=== PATIENT | female | born 1945 | race Asian ===

== ENCOUNTER → 2022-05-19 12:29 | Outpatient (CLI) | payer MEDICARE, OTHER, SELFPAY ==
--- NOTE | 2022-05-19 12:35 | DI.MRI.S_ITS ---
PROCEDURE: MR KNEE LT WO CON INDICATIONS: Sprain of unspecified site of left knee TECHNIQUE: Noncontrast sagittal PD fast spin echo and T2 fast spin echo with fat saturation, sagittal 3-D FLASH with fat saturation; coronal T1 spin echo and PD fast spin echo with fat saturation, and axial PD fast spin echo with fat saturation through the knee. COMPARISON: None. FINDINGS: Image quality: Excellent. Menisci: There is complex tear involving the body and posterior horn of the medial meniscus. The lateral meniscus appears intact. The meniscal root ligaments appear intact. Cruciate ligaments: There is tear of the distal anterior cruciate ligament at its attachment to the anterior tibial eminence. The tear appears partial. There may be mild sprain of the proximal fibers of the posterior cruciate ligament (series 11, image 20). Medial structures: There is grade 2 sprain deep layer of the medial collateral ligament. There is partial tear/sprain of the semimembranosus tendon insertions. The meniscocapsular junction appears intact. Visualized portions of the pes anserinus tendons appear normal. No abnormal bursal fluid. Lateral structures: The lateral collateral ligament and the biceps femoris tendon appear intact. The popliteus tendon appears normal. Iliotibial band appears normal. Anterior structures: The quadriceps and patellar tendons appear intact. Patellar alignment is normal. There is partial tear/sprain of the medial patellar femoral ligament/patellar retinaculum (series 6, image 12). No femoral trochlear dysplasia or ventral trochlear prominence. No edema in the infrapatellar fat pad. There is nonspecific prepatellar soft tissue swelling. Bones and cartilage: There is nondisplaced fracture involving the medial tibial plateau extending to the tibial eminence. Nondisplaced fracture of the anterior aspect of the lateral tibial plateau is present. There is mild bone contusion involving the medial femoral condyle. There is tricompartmental cartilage thinning and fibrillation. Joint space: There is small knee joint effusion. Small De Jesus's cyst. Normal appearing synovial plicae are incidentally noted. IMPRESSION: 1. Anterior cruciate ligament tear. The tear involves the distal ACL at its attachment to the tibial eminence. The tear appears partial. 2. Possible mild sprain of the proximal PCL. 3. Grade 2 sprain of the deep layer of the MCL and partial tear of the semimembranous tendon insertions. 4. Complex tear of the posterior horn and body of the medial meniscus. 5. Partial tear of the medial patellofemoral ligament/patellar retinaculum. 6. Nondisplaced fractures of the medial and lateral tibial plateaus. Dictated by: Jhonny Feliz M.D. on 05/21/2022 at 8:11 Approved by: Jhonny Feliz M.D. on 05/21/2022 at 9:31
== END ==
PROVIDERS: PCP Physician Assistant; Referring Provider Physician Assistant; Visit Provider Physician Assistant
DX: S83.512A Sprain of anterior cruciate ligament of left knee, initial encounter (principal); S83.412A Sprain of medial collateral ligament of left knee, initial encounter; S83.242A Other tear of medial meniscus, current injury, left knee, initial encounter; S76.112A Strain of left quadriceps muscle, fascia and tendon, initial encounter; S82.142A Displaced bicondylar fracture of left tibia, initial encounter for closed fracture
CPT/HCPCS: 73721